=== PATIENT | female | born 1985 | race Caucasian/White ===

== ENCOUNTER 2022-05-30 14:05 | Emergency (ER) | payer BC ==
[2022-05-30 14:31] VITALS: BP 120/71; PULSE 72; RESP 18; TEMP 98.2; BMI 20.1
[2022-05-30 16:25] LABS: BASO % 0.8 % (0-2.0); HEMATOCRIT 40.4 % (32.4-45.2); HEMOGLOBIN 13.6 GM/dL (10.7-15.3); LYMPH % 22.2 % (8-40); MCH 30.9 pg (25.7-33.7); MCHC 33.6 g/dl (32.0-36.0); MEAN CELL VOLUME 92.2 fl (80-96); MEAN PLT VOLUME 7.4 fl (7.5-11.1); MONO % 7.3 % (3.8-10.2); NEUT % 67.7 % (42.8-82.8); PLATELET COUNT 289 10^3/uL (134-434); RBC 4.38 M/mm3 (3.60-5.2); RDW 13.6 % (11.6-15.6); WHITE BLOOD COUNT 5.8 K/mm3 (4.0-10.0)
[2022-05-30 16:28] LABS: EPI CELLS 7 /uL (0-25.1); HYALINE CASTS 0 /uL (0-3.1); PH,URINE 6.5 (5.0-8.0); URINE APPEARANCE CLEAR; URINE BACTERIA 1 /uL (0-1359); URINE BILIRUBIN NEGATIVE (NEGATIVE); URINE COLOR YELLOW; URINE GLUCOSE (UA) NEGATIVE (NEGATIVE); URINE KETONE NEGATIVE (NEGATIVE); URINE LEUK ESTERASE TRACE (NEGATIVE); URINE NITRITE NEGATIVE (NEGATIVE); URINE PROTEIN NEGATIVE (NEGATIVE); URINE RBC 13 /uL (0-23.9); URINE UROBILINOGEN 0.2 mg/dL (0.2-1.0); URINE WBC 3 /uL (0-25.8)
[2022-05-30 16:55] LABS: CALCIUM 9.5 mg/dL (8.5-10.1)
[2022-05-30 16:56] LABS: ALBUMIN 4.1 g/dl (3.4-5.0); BLOOD UREA NITROGEN 11.5 mg/dL (7-18)
[2022-05-30 16:59] LABS: CREATININE 0.7 mg/dL (0.55-1.3)
[2022-05-30 17:00] LABS: BILIRUBIN,TOTAL 0.7 mg/dL (0.2-1); TOT PROT 7.8 g/dl (6.4-8.2)
== END 2022-05-30 17:43 | disposition home or self-care (01) ==
LOC: JER 14:05
DX: N93.9 Abnormal uterine and vaginal bleeding, unspecified (principal); M54.2 Cervicalgia
CPT/HCPCS: 36415; 72050-TC-FY; 80053; 81003; 84702; 85025; 87086; 99284-25

== ENCOUNTER 2024-05-10 06:21 | Day surgery (SDC) | payer BC ==
[2024-05-10 09:14] VITALS: RESP 20; BMI 20.8
[2024-05-10] MEDS ORDERED: ACETAMINOPHEN 325 MG TABLET (FP) PO PRN (10:06)
[2024-05-10] MEDS ORDERED: IBUPROFEN 400 MG TABLET (FP) PO PRN (10:06)
[2024-05-10] MEDS ORDERED: ACETAMINOPHEN INJECTION 100 ML ONE (10:58)
[2024-05-10] MEDS ORDERED: SUCCINYLCHOLINE CHLORIDE 200 MG/10 ML SYRINGE ONE (11:01)
[2024-05-10] MEDS ORDERED: MIDAZOLAM HCL 2 MG/2 ML SINGLE DOSE VIAL ONE (11:01)
[2024-05-10] MEDS ORDERED: LIDOCAINE HCL/PF 2% SDV 5ML VIAL ONE (11:08)
[2024-05-10] MEDS ORDERED: ONDANSETRON 4 MG/2 ML VIAL ONE (11:08)
[2024-05-10] MEDS ORDERED: DEXAMETHASONE SOD PHOSPHATE 4 MG/1 ML VIAL ONE (11:08)
[2024-05-10] MEDS ORDERED: PROPOFOL 20 ML ONE ×2 (11:08→11:31)
[2024-05-10] MEDS ORDERED: KETOROLAC TROMETHAMINE 30 MG/1 ML VIAL ONE (11:08)
[2024-05-10] MEDS ORDERED: METOCLOPRAMIDE HCL INJECTION 10 MG/2 ML VIAL ONE (11:08)
[2024-05-10] MEDS ORDERED: DOXYCYCLINE HYCLATE 100 MG VIAL IVPB ONE (11:15)
[2024-05-10] MEDS: DOXYCYCLINE HYCLATE 100 MG VIAL IVPB ONE (11:25)
[2024-05-10] MEDS ORDERED: PROMETHAZINE HCL 25 MG/1 ML VIAL IVPB PRN (11:48)
[2024-05-10] MEDS ORDERED: oxyCODONE HCL 5 MG TABLET PO PRN (11:48)
[2024-05-10] MEDS ORDERED: LACTATED RINGERS SOLUTION 1,000 ML IV SCH (12:00)
[2024-05-10 13:50] VITALS: BP 104/56; PULSE 78; TEMP 97
== END 2024-05-10 13:56 | disposition home or self-care (01) ==
LOC: JASU-SURG 06:21
PROVIDERS: ATTEND Obstetrics & Gynecology
PROC: 10A07Z6 Abortion of Products of Conception, Vacuum, Via Natural or Artificial Opening (ICD-10-PCS; principal; 2024-05-10 10:30)
DX: O03.4 Incomplete spontaneous abortion without complication (principal); Z3A.11 11 weeks gestation of pregnancy
CPT/HCPCS: 76856-TC; 76998-TC; 88305-TC; 94760; J0131